=== PATIENT | female | born 1995 | race African-American/Black ===

== ENCOUNTER 2016-11-17 10:42 | Inpatient (IN) ==
[2016-11-17] MEDS ORDERED: MEPERIDINE 50 MG/1 ML VIAL IM PRN (10:55)
[2016-11-17] MEDS ORDERED: ONDANSETRON 4 MG/2 ML VIAL IV PRN (10:55)
[2016-11-17] MEDS ORDERED: LACTATED RINGERS 1,000 ML IV SCH (11:00)
[2016-11-17 11:19] LABS: Basophils % 0.1 % (0.0-0.8); Hematocrit 37.7 VOL% (35.7-47.0); Hemoglobin 12.4 GM/DL (12.0-16.0); Immature Granulocytes % 1.2 %; Immature Granulocytes Absolute 0.17 #; Lymphocytes # 0.7 10*3/uL (1.4-4.0); Lymphocytes % 4.9 % (21.3-54.2); Mean Corpuscular HGB Conc 32.9 GM/DL (32-36); Mean Corpuscular Hemoglobin 26 PG (27-34); Mean Corpuscular Volume 80.2 FL (87-102); Mean Platelet Volume 11.3 FL (9.6-12.0); Monocytes # 0.4 10*3/uL (0.11-0.8); Monocytes % 2.8 % (1.7-12.7); Neutrophils # 13.1 10*3/uL (1.4-7.4); Platelet Count 237 T/CUMM (130-400); Red Cell Distribution Width 14.4 % (9.3-17.3); White Blood Count 14.4 T/CUMM (4-12)
[2016-11-17] MEDS ORDERED: BUTORPHANOL 2 MG/ML VIAL IV PRN (11:30)
[2016-11-17 11:41] LABS: Albumin 3.1 G/DL (3.4-5.0); Bilirubin,Total 0.5 MG/DL (0.2-1.0); Calcium 8.7 MG/DL (8.5-10.1); Potassium 3.8 MMOL/L (3.5-5.1); Total Protein 7.4 G/DL (6.4-8.3); Uric Acid 4.4 MG/DL (2.6-6.0)
[2016-11-17] MEDS ORDERED: miSOPROStol 200 MCG TABLET ONE (11:44)
[2016-11-17] MEDS ORDERED: OXYTOCIN/LR 20 UNIT/1,000 ML BAG IV ONE ×2 (11:44→12:02)
[2016-11-17] MEDS ORDERED: LIDOCAINE 1% 50 ML VIAL ONE (11:44)
[2016-11-17 12:18] LABS: Band Neutrophils 1 % (0-10); Hypochromasia 1+; Lymphocytes 8 % (20-55); Microcytosis Slight; Segmented Neutrophils 87 % (50-85); Total Cells Counted 100
[2016-11-17 12:19] LABS: Platelet Estimate Normal
[2016-11-17 12:31] LABS: Cord Venous Blood HCO3 20.2 MMOL/L; Cord Venous Blood PCO2 37.4 MMHG; Cord Venous Blood PO2 32.2
--- NOTE | 2016-11-17 13:37 | OB/GYN History & Physical ---
History of Present Illness Chief complaint: In with active labor History of present illness: Ms. Robins is a 21 year old female who presented to the labor department in active labor. The risk and benefits were thoroughly discussed with this patient significant other and plan of care was discussed with Dr. Horne and all parties are in agreement plan. Her ROHITH is 11/30/2016 for an estimated gestational age of 38 weeks. The patient presents for management of active labor. She is a primigravida. She received her care at the [facility] and her course was uneventful. labs: She is a positive , rubella is immune, RPR is nonreactive, hepatitis B negative, HIV negative, and GBS culture negative. Review of systems is negative with exception of above. Home Medications Medication Instructions Recorded Confirmed Type Pediatric Multivitamin No.101 1 tablet PO BID 10/27/16 11/17/16 History [Gummy] Allergies Allergy/AdvReac Type Severity Reaction Status Date / Time No Known Allergies Allergy Verified 11/10/16 14:41 12 point system: reviewed and no additional remarkable complaints except as stated Medical,Surgical,& Family Hx - Medical History Medical History: noncontributory - Surgical History Surgical History: noncontributory - Family History Family History: Denies;: Family Anesthesia Reaction, Family Cancer, Family Diabetes, Family Heart Disease, Family Hematology, Family Hypertension, Family Psychiatric Problems, Family Stroke, Additional Family History - Social History Smoking Status: Never smoker Frequency of Alcohol Use: None Type of Drug Use: None Marital Status: Single Lives With:: Significant Other Functional capacity: independent ambulation 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 - Constitutional Vitals: Vital Signs Temp Pulse Resp BP Pulse Ox 11/17/16 12:00 76 18 121/66 100 11/17/16 10:58 98.2 F 100 H 16 174/88 General appearance: mild distress - Antepartum / Post Antepartum Exam Cervix - Dilatation: Presented at 5 cm Effacement: 90% effaced Station: -2 Rupture: Spontaneous rupture Presentation: Vertex Heart Rate: 140 Abdomen obstetrics: Present: bowel sounds normal Vagina: Present: normal moisture, discharge Uterus exam: Present: enlarged Anus/Rectum: Present: normal perianal skin - Respiratory Respiratory exam: Present: clear to auscultation bilaterally - Cardiovascular Cardiovascular exam: Present: regular rate and rhythm - GI/Abdominal GI/Abdominal exam: Present: normal bowel sounds - Extremities Exam Extremities exam: Present: normal inspection - Neurological Exam Neurological exam: Present: alert, oriented X3, normal gait - Psychiatric Psychiatric exam: Present: normal affect, normal mood - Skin Skin exam: Present: normal color, warm Assessment and Plan (1) Active labor Status: Acute Assessment and plan: Admit IV fluids IV Pitocin per protocol if indicated Epidural if desired IV pain meds if indicated Anticipate Current Visit: Yes Results - Labs CBC & BMP: 11/17/16 11:13 11/17/16 11:13
--- NOTE | 2016-11-17 13:51 | Event Note ---
HPI: Ms. Robins presented to the labor department in active labor with spontaneous rupture membranes at 38 weeks. She was admitted for management of active labor. The risk and benefits were thoroughly discussed with this patient in Dr. Horne, all parties were in agreement with plan of care. Stage I: The patient was admitted and she received IV fluids, she progressed in labor rapidly with a CAT 1 tracing. The patient requested an epidural but by the time the anesthesia mated to the department the patient was completely dilated. Stage II: The patient was complete and complained of pressure and strong desire to push. She pushed for approximately 3 times at which time the infant's head was delivered. The mouth nose suctioned on the perineum, the remainder the infant was delivered at 11:45 a viable male was noted. Apgars were 8 at 1 minute and 9 at 5 minutes. weight was 5 pounds and 5 ounces. A cord pH was obtained and sent to the lab. Stage III: A spontaneous delivery of a Aguilar placenta with a three-vessel cord noted. Placenta was further examined and appeared to be grossly intact. The vagina cervix inspected with no tears or lacerations noted. Estimated blood loss was approximately 150 cc. At the time of dictation mother and baby are both in stable condition.
[2016-11-17] MEDS ORDERED: ACETAMINOPHEN/CODEINE 300-30 MG TABLET PO PRN (13:53)
[2016-11-17] MEDS ORDERED: IBUPROFEN 800 MG TABLET PO PRN (14:13)
[2016-11-17] MEDS ORDERED: MEASLES/MUMPS/RUBELLA VACCINE 0.5 ML VIAL SUBCUT ONE (14:13)
[2016-11-17] MEDS ORDERED: LANOLIN 50% CREAM 0.3 OZ TUBE TOP PRN (14:13)
[2016-11-17] MEDS ORDERED: BISACODYL 10 MG SUPP RECTAL PRN (14:13)
[2016-11-17] MEDS ORDERED: BENZOCAINE 20%/MENTHOL 0.5% SPRAY 56 GM CAN TOP PRN (14:13)
[2016-11-17] MEDS ORDERED: ACETAMINOPHEN 325 MG TABLET PO PRN (14:13)
[2016-11-17] MEDS ORDERED: oxyCODONE/ACETAMINOPHEN 5-325 MG TABLET PO PRN ×2 (14:13)
[2016-11-17] MEDS ORDERED: WITCH HAZEL PADS 100/JAR TOP PRN (14:13)
[2016-11-17] MEDS ORDERED: RHO(D) IMMUNE GLOBULIN 300 MCG SYRINGE IM ONE (14:13)
[2016-11-17] MEDS ORDERED: DIPH/TET/ACEL PERT BOOSTER VACCINE 0.5 ML VIAL IM ONE (14:13)
[2016-11-17] MEDS ORDERED: HYDROCORTISONE 2.5% RECTAL CREAM 30 GM TUBE TOP PRN (14:13)
[2016-11-17] MEDS: DOCUSATE SODIUM 100 MG CAPSULE PO SCH (21:19)
[2016-11-18 06:32] LABS: Basophils % 0.2 % (0.0-0.8); Eosinophils % 0.2 % (0.00-10.9); Mean Corpuscular Hemoglobin 26 PG (27-34); Red Blood Count 3.94 MC/CUMM (3.8-5.5); Red Cell Distribution Width 14.4 % (9.3-17.3)
[2016-11-18 06:42] LABS: Hematocrit 30.9 VOL% (35.7-47.0); Immature Granulocytes % 1.1 %; Immature Granulocytes Absolute 0.14 #; Lymphocytes # 2.2 10*3/uL (1.4-4.0); Lymphocytes % 17.4 % (21.3-54.2); Mean Corpuscular HGB Conc 33.7 GM/DL (32-36); Mean Corpuscular Volume 78.4 FL (87-102); Mean Platelet Volume 11.8 FL (9.6-12.0); Monocytes # 1.2 10*3/uL (0.11-0.8); Monocytes % 9.2 % (1.7-12.7); Neutrophils % 71.9 % (38.7-73.9); Platelet Count 207 T/CUMM (130-400); White Blood Count 12.5 T/CUMM (4-12)
[2016-11-18 06:43] LABS: Hemoglobin 10.4 GM/DL (12.0-16.0)
[2016-11-18] MEDS: DOCUSATE SODIUM 100 MG CAPSULE PO SCH ×2 (08:52→22:04)
--- NOTE | 2016-11-18 08:55 | OB/GYN Progress Note ---
Assessment and Plan (1) Active labor Status: Acute Assessment and plan: Admit IV fluids IV Pitocin per protocol if indicated Epidural if desired IV pain meds if indicated Anticipate Current Visit: Yes (2) Vaginal delivery Status: Acute Assessment and plan: Initiate routine orders. 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 Bonding well with infant. 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 GRINDER FEEDER - Constitutional Vitals: Vital Signs Temp Pulse Resp BP Pulse Ox 11/18/16 07:35 97.6 F 97 H 20 121/69 97 11/18/16 06:27 18 11/18/16 06:00 18 11/18/16 05:00 18 11/18/16 04:00 98.3 F 75 18 106/52 99 11/18/16 02:00 18 11/18/16 01:00 18 11/18/16 00:00 98.3 F 75 18 106/52 99 11/17/16 20:00 98.6 F 102 H 18 130/79 99 11/17/16 18:46 20 11/17/16 17:58 20 11/17/16 17:00 20 11/17/16 15:55 98.3 F 89 18 131/80 99 11/17/16 15:00 98.9 F 89 18 125/78 100 11/17/16 14:30 98.7 F 76 18 141/72 97 11/17/16 14:00 98.7 F 76 18 147/79 97 11/17/16 12:00 76 18 121/66 100 11/17/16 10:58 98.2 F 100 H 16 174/88 General appearance: no acute distress - Antepartum / Post Post Exam Breast: bilateral: normal Abdomen obstetrics: Present: bowel sounds normal Vagina: Present: normal moisture, discharge (Light lochia rubra) Uterus exam: Present: enlarged (Fundus firm and midline) Anus/Rectum: Present: normal perianal skin - Respiratory Respiratory exam: Present: clear to auscultation bilaterally - Cardiovascular Cardiovascular exam: Present: regular rate and rhythm - GI/Abdominal GI/Abdominal exam: Present: normal bowel sounds, soft - Extremities Exam Extremities exam: Present: normal inspection - Neurological Exam Neurological exam: Present: alert, oriented X3 - Psychiatric Psychiatric exam: Present: normal affect, normal mood - Skin Skin exam: Present: normal color, warm Results - Labs CBC & BMP: 11/18/16 06:00 11/17/16 11:13
[2016-11-18] MEDS: FERROUS SULFATE 325 MG TABLET PO SCH ×2 (12:12→22:04)
--- NOTE | 2016-11-19 10:07 | Discharge Summary ---
Hospital Course - Hospital Course Hospital Course: Ms. Robins presented to the labor department in active labor. She subsequently delivered a viable with no complications. She has followed a normal course and she has done well. Her bleeding is minimal with no odor. Her fundus is firm and midline. Her perineum is intact with no edema. She is bonding well with her infant. Her vital signs and lab values are stable. Contraception options has been discussed with this patient and she desires to have a Nexplanon inserted at her visit. She will be discharged home prescription for pain and follow-up appointment in our office. Diagnosis - Discharge Diagnosis (1) Active labor Status: Acute (2) Vaginal delivery Status: Acute Specialty Discharge - Follow Up or Referrals Follow up with: Adair Hrone MD [Physician] - (Follow-up in 6 weeks.) Discharge Plan - Discharge Data Disposition: Disch To Home/Self Care Condition at Discharge: Stable Discharge Diet: advance to your usual diet, regular diet Activity: resume usual activities as tolerated Hygiene: may shower Weight Bearing at Discharge: weight bear as tolerated Contact your physician if you experience:: fever over 101, Shortness of breath, pain uncontrolled by pain medications - Discharge Medications New Acetamin/Codeine 300-30 Tab [Tylenol/Codeine #3] 2 tablet PO Q4H PRN #30 tablet PRN Reason: Pain Mild (1-3) Ferrous Sulfate Tab [Feosol Original Tab] 325 mg PO BID #60 tablet Ibuprofen Tab [Motrin Tab] 800 mg PO Q8H PRN #30 tablet PRN Reason: Pain Moderate (4-7) No Action Pediatric Multivitamin No.101 [Gummy] 1 tablet PO BID - Follow Up or Referral - Forms/Instructions Exam - Constitutional Vitals: Period Temp Pulse Resp BP Sys/Jean Pulse Ox Last 24 Hr 97.8 F-98.6 F 74-98 16-20 119-132/68-83 98-99 General appearance: no acute distress - Respiratory Respiratory exam: Present: clear to auscultation bilaterally - Cardiovascular Cardiovascular exam: Present: regular rate and rhythm - GI/Abdominal GI/Abdominal exam: Present: normal bowel sounds, soft - Extremities Exam Extremities exam: Present: normal inspection - Neurological Exam Neurological exam: Present: alert, oriented X3 - Psychiatric Psychiatric exam: Present: normal affect, normal mood - Skin Skin exam: Present: normal color, warm DS: Provider Date of admission: 11/17/16 10:55 Primary care physician: Ángel Greenwood M.D. Attending physician on admission: Adair Horne MD Consults: 11/17/16 10:55 Consult to Anesthesiology [CONS] Routine Consulting Provider: Reason for Anesthesiology: Epidural Consult Comment: Epidural for pain managment 11/17/16 14:13 Consult to Flexible Nanny [CONS] Routine Consult Flexible Nanny: Breast Feeding Discharging clinician: Dafne Bell CNM Expected date of discharge: 11/19/16
[2016-11-19] MEDS: DOCUSATE SODIUM 100 MG CAPSULE PO SCH (10:17)
[2016-11-19] MEDS: FERROUS SULFATE 325 MG TABLET PO SCH (10:18)
[2016-11-19 14:57] VITALS: BP 130/68
== END 2016-11-19 13:30 | disposition home or self-care (01) | DRG 560 ==
LOC: N.LDOUT 10:42 → N.LD 10:43 → N.OB 13:51
PROVIDERS: ADMIT Obstetrics & Gynecology; ATTEND Obstetrics & Gynecology